=== PATIENT | female | born 1965 | race Caucasian/White ===

== ENCOUNTER → 2017-03-26 | Outpatient (CLI) | payer BC ==
--- NOTE | 2017-03-26 12:01 | FL ---
EXAMINATION TYPE: FL UGI w esophagus DATE OF EXAM: 03/26/2017 COMPARISON: NONE HISTORY: Intermittent globus sensation and dysphasia TECHNIQUE: A double contrast UGI study is performed. Fluoroscopy time of 1.8 minutes was utilized an d 97 images were saved. FINDINGS: Material Assembler image of the abdomen shows cholecystectomy clips within the right upper quadrant and no pneumoperitoneum. The esophagus shows normal motility and emptying into the stomach. No evidence of hiatal hernia or s tricture noted. Mild impression upon the posterior esophagus from anterior disc osteophyte is seen at C4-C5, C5-C6 and C6-C7. The stomach shows normal distensibility, peristalsis, and mucosal folds. No evidence of any mass or ulcer disease. No significant gastroesophageal reflux was seen during real time performance of this study. The duodenal bulb, sweep, and proximal small bowel loops are unremarkable. IMPRESSION: 1. Mild impression on the posterior esophagus at C4-C5, C5-C6, and C6-C7 from disc osteophyte complex es/anterior osteophytes. 2. No stricture, hiatal hernia, or evidence of focal ulceration.
== END ==
LOC: RADFLWHC 08:38
PROVIDERS: ATTEND Internal Medicine
DX: R13.10 Dysphagia, unspecified (principal)
CPT/HCPCS: 74240

== ENCOUNTER 2017-11-15 13:34 | Emergency (ER) | payer BC ==
[2017-11-15 13:44] VITALS: RESP 18; TEMP 98
[2017-11-15] MEDS ORDERED: MORPHINE SULFATE 2 MG/ML SYRINGE IV STA (14:49)
[2017-11-15] MEDS ORDERED: SODIUM CHLORIDE 0.9% 1,000 ML IV STA (14:49)
[2017-11-15 15:22] LABS: Basophils # (A) 0.1 k/uL (0-0.2); Basophils % (A) 0 %; Eosinophils # (A) 0.3 k/uL (0-0.7); Eosinophils % (A) 2 %; HCT 42.1 % (34.0-46.0); HGB 14.1 gm/dL (11.4-16.0); Lymphocytes # (A) 4.1 k/uL (1.0-4.8); Lymphocytes % (A) 36 %; MCH 30.2 pg (25.0-35.0); MCHC 33.6 g/dL (31.0-37.0); MCV 89.8 fL (80.0-100.0); Mean Platelet Volume 6.7; Monocytes # (A) 0.7 k/uL (0-1.0); Monocytes % (A) 6 %; Neutrophils # (A) 6.3 k/uL (1.3-7.7); Neutrophils % (A) 54 %; Platelet Count 307 k/uL (150-450); RBC 4.69 m/uL (3.80-5.40); RDW 12.5 % (11.5-15.5); WBC 11.6 k/uL (3.8-10.6)
[2017-11-15 15:23] LABS: Appearance,Urine Clear (Clear); Bacteria,Urine Rare /hpf; Bilirubin,Urine Negative (Negative); Blood,Urine Small (Negative); Color,Urine Light Yellow; Glucose,Urine (UA) Negative (Negative); Ketones,Urine Negative (Negative); Leukocyte Esterase,Urine Negative (Negative); Mucus,Urine Rare /hpf; Nitrite,Urine Negative (Negative); PH, Urine 5.5 (5.0-8.0); Protein,Urine Negative (Negative); RBC,Urine <1 /hpf (0-5); Specific Gravity,Urine 1.005 (1.001-1.035); Urobilinogen,Urine <2.0 mg/dL (<2.0); WBC,Urine 1 /hpf (0-5)
[2017-11-15 15:30] LABS: INR 0.9 (<1.2); Prothrombin Time 9.3 sec (9.0-12.0)
[2017-11-15 15:31] LABS: ALT 25 U/L (9-52); AST 19 U/L (14-36); Albumin 4.2 g/dL (3.5-5.0); Alkaline Phosphatase 80 U/L (38-126); Amylase 63 U/L (30-110); Anion Gap 10 mmol/L; Blood Urea Nitrogen 12 mg/dL (7-17); Calcium 9.1 mg/dL (8.4-10.2); Carbon Dioxide 25 mmol/L (22-30); Chloride 105 mmol/L (98-107); Glucose 89 mg/dL (74-99); Lipase 54 U/L (23-300); Potassium 5.1 mmol/L (3.5-5.1); Sodium 140 mmol/L (137-145); Total Bilirubin 0.5 mg/dL (0.2-1.3); Total Protein 6.6 g/dL (6.3-8.2)
--- NOTE | 2017-11-15 15:33 | ED ---
General Adult HPI - General Chief complaint: Abdominal Pain Stated complaint: pelvic pain Time Seen by Provider: 11/15/17 14:37 Source: patient, RN notes reviewed, old records reviewed Mode of arrival: ambulatory Limitations: no limitations - History of Present Illness Initial comments: 52-year-old female the ER for evaluation without pain. Patient has severe abdominal pain right lower quadrant abdominal pain. Mild nausea no vomiting or diarrhea. Patient has no recent medical history of similar complaints. Patient has had a gallbladder removed. Significant with no sick contacts no family members with similar complaints. He was seen by family doctor sent ER for evaluation today. No prior history of colonoscopy - Related Data Home Medications Medication Instructions Recorded Confirmed Levothyroxine Sodium [Synthroid] 125 mcg PO DAILY 11/15/17 11/15/17 Allergies Allergy/AdvReac Type Severity Reaction Status Date / Time bupropion [From Zyban] Allergy Rash/Hives Verified 11/15/17 14:51 Echinacea Allergy Rash/Hives Verified 11/15/17 14:51 Review of Systems ROS Statement: Those systems with pertinent positive or pertinent negative responses have been documented in the HPI. ROS Other: All systems not noted in ROS Statement are negative. Past Medical History Past Medical History: Thyroid Disorder History of Any Multi-Drug Resistant Organisms: None Reported Past Surgical History: Ablation, Bladder Surgery, Cholecystectomy, Tubal Ligation Additional Past Surgical History / Comment(s): Bladder Past Psychological History: No Psychological Hx Reported Smoking Status: Current every day smoker Past Alcohol Use History: None Reported Past Drug Use History: None Reported General Exam Limitations: no limitations General appearance: alert, in no apparent distress Head exam: Present: atraumatic, normocephalic, normal inspection Eye exam: Present: normal appearance, PERRL, EOMI. Absent: scleral icterus, conjunctival injection, periorbital swelling ENT exam: Present: normal exam, mucous membranes moist Neck exam: Present: normal inspection. Absent: tenderness, meningismus, lymphadenopathy Respiratory exam: Present: normal lung sounds bilaterally. Absent: respiratory distress, wheezes, rales, rhonchi, stridor Cardiovascular Exam: Present: regular rate, normal rhythm, normal heart sounds. Absent: systolic murmur, diastolic murmur, rubs, gallop, clicks GI/Abdominal exam: Present: soft, tenderness (Right lower quadrant), normal bowel sounds. Absent: distended, guarding, rebound, rigid Extremities exam: Present: normal inspection, full ROM, normal capillary refill. Absent: tenderness, pedal edema, joint swelling, calf tenderness Back exam: Present: normal inspection Neurological exam: Present: alert, oriented X3, CN II-XII intact Psychiatric exam: Present: normal affect, normal mood Skin exam: Present: warm, dry, intact, normal color. Absent: rash Course Vital Signs 11/15/17 11/15/17 13:41 17:23 Temperature 98 F Pulse Rate 78 63 Respiratory 18 18 Rate Blood Pressure 155/83 138/78 O2 Sat by Pulse 99 100 Oximetry - Reevaluation(s) Reevaluation #1: 11/15/17 17:47 Patient's pain is well-controlled Reevaluation #2: 11/15/17 17:48 Spoke with patient at length regarding symptoms. Result of test. Patient does not want stay in hospital at this time, she wants to find OB on her own Medical Decision Making - Medical Decision Making 52 female the ER with pelvic pain abdominal pain. Positive endometrial mass on ultrasound, mild free fluid, blood. Patient will be discharged home, patient will follow will be on an outpatient basis - Lab Data Result diagrams: 11/15/17 15:01 11/15/17 15:01 Lab Results 11/15/17 11/15/17 11/15/17 Range/Units 15:01 15:01 15:01 WBC 11.6 H (3.8-10.6) k/uL RBC 4.69 (3.80-5.40) m/uL Hgb 14.1 (11.4-16.0) gm/dL Hct 42.1 (34.0-46.0) % MCV 89.8 (80.0-100.0) fL MCH 30.2 (25.0-35.0) pg MCHC 33.6 (31.0-37.0) g/dL RDW 12.5 (11.5-15.5) % Plt Count 307 (150-450) k/uL Neutrophils % 54 % Lymphocytes % 36 % Monocytes % 6 % Eosinophils % 2 % Basophils % 0 % Neutrophils # 6.3 (1.3-7.7) k/uL Lymphocytes # 4.1 (1.0-4.8) k/uL Monocytes # 0.7 (0-1.0) k/uL Eosinophils # 0.3 (0-0.7) k/uL Basophils # 0.1 (0-0.2) k/uL PT 9.3 (9.0-12.0) sec INR 0.9 (<1.2) APTT 25.0 (22.0-30.0) sec Sodium 140 (137-145) mmol/L Potassium 5.1 (3.5-5.1) mmol/L Chloride 105 (98-107) mmol/L Carbon Dioxide 25 (22-30) mmol/L Anion Gap 10 mmol/L BUN 12 (7-17) mg/dL Creatinine 0.69 (0.52-1.04) mg/dL Est GFR (CKD-EPI)AfAm >90 (>60 ml/min/1.73 sqM) Est GFR (CKD-EPI)NonAf >90 (>60 ml/min/1.73 sqM) Glucose 89 (74-99) mg/dL Plasma Lactic Acid Kaiden (0.7-2.0) mmol/L Calcium 9.1 (8.4-10.2) mg/dL Total Bilirubin 0.5 (0.2-1.3) mg/dL AST 19 (14-36) U/L ALT 25 (9-52) U/L Alkaline Phosphatase 80 (38-126) U/L Total Protein 6.6 (6.3-8.2) g/dL Albumin 4.2 (3.5-5.0) g/dL Amylase 63 (30-110) U/L Lipase 54 (23-300) U/L Urine Color Urine Appearance (Clear) Urine pH (5.0-8.0) Ur Specific [place] (1.001-1.035) Urine Protein (Negative) Urine Glucose (UA) (Negative) Urine Ketones (Negative) Urine Blood (Negative) Urine Nitrite (Negative) Urine Bilirubin (Negative) Urine Urobilinogen (<2.0) mg/dL Ur Leukocyte Esterase (Negative) Urine RBC (0-5) /hpf Urine WBC (0-5) /hpf Urine Bacteria (None) /hpf Urine Mucus (None) /hpf 11/15/17 11/15/17 Range/Units 15:01 15:39 WBC (3.8-10.6) k/uL RBC (3.80-5.40) m/uL Hgb (11.4-16.0) gm/dL Hct (34.0-46.0) % MCV (80.0-100.0) fL MCH (25.0-35.0) pg MCHC (31.0-37.0) g/dL RDW (11.5-15.5) % Plt Count (150-450) k/uL Neutrophils % % Lymphocytes % % Monocytes % % Eosinophils % % Basophils % % Neutrophils # (1.3-7.7) k/uL Lymphocytes # (1.0-4.8) k/uL Monocytes # (0-1.0) k/uL Eosinophils # (0-0.7) k/uL Basophils # (0-0.2) k/uL PT (9.0-12.0) sec INR (<1.2) APTT (22.0-30.0) sec Sodium (137-145) mmol/L Potassium (3.5-5.1) mmol/L Chloride (98-107) mmol/L Carbon Dioxide (22-30) mmol/L Anion Gap mmol/L BUN (7-17) mg/dL Creatinine (0.52-1.04) mg/dL Est GFR (CKD-EPI)AfAm (>60 ml/min/1.73 sqM) Est GFR (CKD-EPI)NonAf (>60 ml/min/1.73 sqM) Glucose (74-99) mg/dL Plasma Lactic Acid [place] 0.6 L (0.7-2.0) mmol/L Calcium (8.4-10.2) mg/dL Total Bilirubin (0.2-1.3) mg/dL AST (14-36) U/L ALT (9-52) U/L Alkaline Phosphatase (38-126) U/L Total Protein (6.3-8.2) g/dL Albumin (3.5-5.0) g/dL Amylase (30-110) U/L Lipase (23-300) U/L Urine Color Light Yellow Urine Appearance Clear (Clear) Urine pH 5.5 (5.0-8.0) Ur Specific [place] 1.005 (1.001-1.035) Urine Protein Negative (Negative) Urine Glucose (UA) Negative (Negative) Urine Ketones Negative (Negative) Urine Blood Small H (Negative) Urine Nitrite Negative (Negative) Urine Bilirubin Negative (Negative) Urine Urobilinogen <2.0 (<2.0) mg/dL Ur Leukocyte Esterase Negative (Negative) Urine RBC <1 (0-5) /hpf Urine WBC 1 (0-5) /hpf Urine Bacteria Rare H (None) /hpf Urine Mucus Rare H (None) /hpf - Radiology Data Radiology results: report reviewed (CT abdomen and pelvis negative, ultrasound pelvis with positive free fluid, likely endometrial mass), image reviewed Disposition Clinical Impression: Pelvic mass, Endometrial mass Disposition: HOME SELF-CARE Condition: Good Instructions: Pelvic Pain in Women (ED) Is patient prescribed a controlled substance at d/c from ED?: No Referrals: Haris Gomez MD [Primary Care Provider] - 1-2 days Peggy Rg DO [Doctor of Osteopathic Medicine] - 1-2 days
--- NOTE | 2017-11-15 15:43 | CT ---
EXAMINATION TYPE: CT abdomen pelvis w con DATE OF EXAM: 11/15/2017 HISTORY: Right lower quadrant pain for past couple of days. CT DLP: 1588mGycm Automated Exposure Control for Dose Reduction was Utilized. CONTRAST: CT scan of the abdomen and pelvis is performed without oral but with IV Contrast, patient injected wi th 100 mL of Isovue 300. COMPARISON: CT abdomen pelvis December 29, 2009 FINDINGS: LUNG BASES: No significant abnormality is appreciated. LIVER/GB: Cholecystectomy clips are redemonstrated. PANCREAS: No significant abnormality is seen. SPLEEN: No significant abnormality is seen. ADRENALS: No significant abnormality is seen. KIDNEYS: No significant abnormality is seen. BOWEL: Appendix is felt within normal limits from base of cecum which is low lying in right pelvis se en best axial images 39 through 44. There is no suspicious small or large bowel dilatation. UTERUS/ADNEXA: Anteverted uterus is seen central hypodensity could reflect cystic change versus fluid trapped in endometrial canal in arcuate type configuration, this could be further investigated with pelvic ultrasound if desired. LYMPH NODES: No greater than 1cm abdominal or pelvic lymph nodes are appreciated. Slightly prominent but symmetric subcentimeter bilateral groin lymph nodes are incidentally noted. OSSEOUS STRUCTURES: There is transitional-type vertebra at lumbosacral junction is redemonstrated. OTHER: No significant additional abnormality is seen. IMPRESSION: No significant new or acute finding is seen to account for patient's clinical symptoms.
--- NOTE | 2017-11-15 17:25 | US ---
EXAMINATION TYPE: US transvaginal DATE OF EXAM: 11/15/2017 COMPARISON: NONE CLINICAL HISTORY: Pain, RLQ. TECHNIQUE: . Transabdominal sonographic images of the pelvis were acquired. Transvaginal sonographi c images were medically necessary to better assess the following anatomy: Date of LMP: 1 year prior EXAM MEASUREMENTS: Uterus: 8.5 x 4.7 x 5.8 cm Endometrial Stripe: 1.4 cm Right Ovary: Not visualized Left Ovary: Not visualized 1. Uterus: Anteverted 2. Endometrium: upper limits of normal in post menopausal patient, 2 cystic areas with internal debr is that appear to be within the endometrium largest measuring 1.4 x 0.7 x 1.2cm, second area measurin g 0.4 x 0.8 x 0.5cm 3. Right Ovary: not visualized 4. Left Ovary: not visualized 5. Bilateral Adnexa: wnl 6. Posterior cul-de-sac:wnl IMPRESSION: There is a complex fluid collection in the endometrial cavity. Endometrial tumor is possi ble in this postmenopausal patient. No adnexal mass.
[2017-11-15 17:27] VITALS: BP 138/78; PULSE 63
== END 2017-11-15 18:14 | disposition home or self-care (01) ==
LOC: EC 13:34
DX: N85.8 Other specified noninflammatory disorders of uterus (principal); R19.00 Intra-abdominal and pelvic swelling, mass and lump, unspecified site; R10.31 Right lower quadrant pain; R11.0 Nausea; E07.9 Disorder of thyroid, unspecified; F17.200 Nicotine dependence, unspecified, uncomplicated; Z79.899 Other long term (current) drug therapy; Z88.8 Allergy status to other drugs, medicaments and biological substances; Z90.49 Acquired absence of other specified parts of digestive tract; Z98.51 Tubal ligation status; Z53.20 Procedure and treatment not carried out because of patient's decision for unspecified reasons
CPT/HCPCS: 36415; 80053; 82150; 83605; 83690; 85025; 85610; 85730; 81001; 87086; 76830; 74177; 99284; 96360; 96361 ×2; Q9967

== ENCOUNTER → 2018-01-12 | Outpatient (CLI) | payer BC ==
[2018-01-12 11:38] LABS: Basophils # (A) 0.1 k/uL (0-0.2); Basophils % (A) 0 %; Eosinophils # (A) 0.3 k/uL (0-0.7); Eosinophils % (A) 3 %; HCT 44.2 % (34.0-46.0); HGB 14.5 gm/dL (11.4-16.0); Lymphocytes # (A) 3.8 k/uL (1.0-4.8); Lymphocytes % (A) 34 %; MCH 29.5 pg (25.0-35.0); MCHC 32.8 g/dL (31.0-37.0); MCV 89.8 fL (80.0-100.0); Mean Platelet Volume 6.8; Monocytes # (A) 0.8 k/uL (0-1.0); Monocytes % (A) 8 %; Neutrophils # (A) 5.9 k/uL (1.3-7.7); Neutrophils % (A) 54 %; Platelet Count 304 k/uL (150-450); RBC 4.92 m/uL (3.80-5.40); WBC 10.9 k/uL (3.8-10.6)
== END | disposition home or self-care (01) ==
LOC: LABPAT 11:14
PROVIDERS: ATTEND Obstetrics & Gynecology
DX: Z01.812 Encounter for preprocedural laboratory examination (principal); R10.2 Pelvic and perineal pain; N85.7 Hematometra
CPT/HCPCS: 36415; 85025

== ENCOUNTER 2018-01-21 07:08 | Day surgery (SDC) | payer BC ==
[2018-01-14 15:03] VITALS: BMI 35.2
[~2018-01-21 07:08] MED LIST: DEXAMETHASONE SOD PHOSPHATE 10 MG/ML 1 ML VIAL IV ONE; HYDROmorphone 0.5 MG/0.5 ML SYRINGE IVP PRN; LACTATED RINGERS 1,000 ML IV SCH; ONDANSETRON 4 MG/2 ML VIAL IVP ONE; Pre Op ABX Message 1 EACH MISC MISCELLANE ONE
[2018-01-21] MEDS ORDERED: LIDOCAINE 1% 20 ML VIAL (10MG/ML) FOR IV START INTRADERMA ONE (07:53)
[2018-01-21] MEDS ORDERED: fentaNYL (PF) 50 MCG/ML 2 ML AMP ONE (08:43)
[2018-01-21] MEDS ORDERED: LIDOCAINE 1% INJ 10MG/ML (20 ML MDV) ONE (08:43)
[2018-01-21] MEDS ORDERED: KETOROLAC 30 MG/ML 1 ML VIAL ONE (08:43)
[2018-01-21] MEDS ORDERED: MIDAZOLAM 2 MG/2 ML VIAL ONE (08:43)
[2018-01-21] MEDS ORDERED: PROPOFOL 10 MG/ML 20 ML VIAL IV ONE (08:43)
[2018-01-21] MEDS ORDERED: IBUPROFEN 600 MG TAB PO PRN (09:21)
[2018-01-21] MEDS ORDERED: METOCLOPRAMIDE 5 MG/ML 2 ML VIAL IVP PRN (09:21)
[2018-01-21] MEDS ORDERED: ONDANSETRON 4 MG/2 ML VIAL IVP PRN (09:21)
[2018-01-21] MEDS ORDERED: diphenhydrAMINE 50 MG/ML 1 ML VIAL IVP PRN (09:21)
[2018-01-21] MEDS ORDERED: SIMETHICONE 80 MG CHEWABLE PO PRN (09:21)
[2018-01-21] MEDS ORDERED: Acetaminophen-Codeine 300-30mg TAB PO PRN ×2 (09:21)
[2018-01-21] MEDS ORDERED: KETOROLAC 30 MG/ML 1 ML VIAL IVP PRN (09:21)
[2018-01-21 09:23] VITALS: TEMP 97
[2018-01-21] MEDS ORDERED: LACTATED RINGERS 1,000 ML IV SCH (09:30)
--- NOTE | 2018-01-21 09:32 | P.OP ---
Date of Procedure: 01/21/18 Preoperative Diagnosis: #1. Chronic pelvic pain #2. History of endometrial ablation #3. Probable hematometra Postoperative Diagnosis: Same Procedure(s) Performed: #1. Diagnostic hysteroscopy #2. Lysis of endometrial adhesions #3. Dilation and curettage Anesthesia: other (Gen. by face mask) Surgeon: Cj Nelson Estimated Blood Loss (ml): 5 IV fluids (ml): 300 Urine output (ml): 50 Pathology: other (Endometrial curettings) Condition: stable Disposition: PACU Operative Findings: Preoperative pelvic examination demonstrated a roughly 4-5 week anteverted mobile normal shaped uterus with normal adnexa bilaterally. Previous ultrasound had shown 2 small collections of fluid within the endometrial cavity or uterus which were thought to represent hematometra. Intraoperatively, there was initial penetration of adhesive disease at the level of the internal cervical os with the blunt probe leading to a uterine sound measurement of approximately 8-9 cm. With both the sound and subsequent dilation, darkish brown fluid was continue the sleeve released from the cervix. There were several other small "pops" during dilation likely representing breaking down of further endometrial adhesions. The dilators were utilized, once inserted into the endometrial cavity, to sweep back and forth in an attempt to break down any further adhesions. The hysteroscopic view of the endometrial cavity failed to demonstrate any obvious pathology and did not demonstrate any normal architecture. The patient is a poor candidate for a vaginal hysterectomy and would likely benefit from da Shawna approach should it become necessary. Description of Procedure: The patient was prepped and draped in usual fashion after general anesthesia was administered by the anesthesiologist. A weighted speculum was placed and the bladder drained of approximately 50 mL of clear umm urine. The anterior lip of the cervix was grasped with a single-tooth tenaculum and uterine sound utilized to probe the cervix. With some degree of pressure, I was able to pop through what appeared to be a dense adhesion which released some dark brown fluid around the sound. The uterine sound measurement then was recorded approximately 8-9 cm. Serial dilators were utilized to further enlarge the opening at the cervical os and, once to approximately 14-Upper Sor[place], were swept back and forth at the apex of the endometrial cavity to attempt to break down further adhesions. Several further "pops" were felt at which time further release of fluid was noted. Once adequate dilation had been carried out, the diagnostic hysteroscope was placed into the endometrial cavity and distended with fluid. There was no obvious normal architecture noted and there was a generally shaggy appearance to the endometrial cavity, particularly as it approached the most superior portions. Once hysteroscopy had been exhausted, it was set aside in favor of a small sharp curette which was introduced to the fundus of the cavity width thorough circumferential sharp curettage carried out onto a Telfa in the vagina. The typical gritty texture was encountered throughout the entire procedure and minimal tissue was returned. After several passes with the sharp curet, the specimen was passed for pathological diagnoses. All instrumentation was removed. There was a very small amount of ongoing bleeding, mostly darkish-appearing blood from the cervical os. There is no bleeding from the tenaculum site. All sponge, instrument, and needle counts were correct. There were no complications. Estimated blood loss for the case was 5 mL or less. The patient tolerated the procedure well and proceeded to the recovery room in stable condition.
[2018-01-21 09:46] VITALS: RESP 16
[2018-01-21 10:59] VITALS: BP 133/80; PULSE 68
== END 2018-01-21 11:10 | disposition home or self-care (01) ==
LOC: OR 07:08
PROVIDERS: ATTEND Obstetrics & Gynecology
DX: N99.4 Postprocedural pelvic peritoneal adhesions (principal); E03.9 Hypothyroidism, unspecified; Z79.890 Hormone replacement therapy; Z79.899 Other long term (current) drug therapy; Z88.8 Allergy status to other drugs, medicaments and biological substances; F17.210 Nicotine dependence, cigarettes, uncomplicated
CPT/HCPCS: 88305; 58558; J2250; J1100; J2405; J2001; J3010; J1885; J2704

== ENCOUNTER → 2018-10-18 | Outpatient (CLI) | payer BC ==
--- NOTE | 2018-10-22 13:50 | MM ---
Reason for exam: screening (asymptomatic). Last mammogram was performed 1 year and 10 months ago. History: Patient had first child at age 35. Family history of breast cancer in grandmother. Took hormonal contraceptives for 10 years. Physical Findings: A clinical breast exam by your physician is recommended on an annual basis and results should be correlated with mammographic findings. MG 3D Screening Mammo W/Cad Bilateral CC and MLO view(s) were taken. Prior study comparison: December 26, 2016, mammogram. October 21, 2015, mammogram. March 25, 2009, bilateral digital screening mammogram. November 25, 2007, bilateral digital screening mammogram. The breast tissue is heterogeneously dense. This may lower the sensitivity of mammography. No significant changes when compared with prior studies. ASSESSMENT: Benign, BI-RAD 2 RECOMMENDATION: Routine screening mammogram of both breasts in 1 year.
== END ==
LOC: RADMAMWWP 07:02
PROVIDERS: ATTEND Internal Medicine
DX: Z12.31 Encounter for screening mammogram for malignant neoplasm of breast (principal)
CPT/HCPCS: 77063; 77067

== ENCOUNTER → 2020-05-12 | Outpatient (CLI) | payer BC ==
--- NOTE | 2020-05-12 13:55 | BD ---
EXAMINATION TYPE: Axial Bone Density DATE OF EXAM: 05/12/2020 COMPARISON: 03.25.2009 CLINICAL HISTORY: 55 YR OLD FEMALE ICD-10 CODE: N95.1 POST MENOPAUSAL Height: 63.3 Weight: 215 FRAX RISK QUESTIONS: Current Tobacco Use: YES RISK FACTORS HISTORY OF: Family History of Osteoporosis: YES, GRANDMOTHER Postmenopausal woman: LMP 2 YRS AGO....AT 53 YRS OLD Hyperparathyroidism: NO Adrenal Insufficiency: NO MEDICATIONS: Thyroid Medications: YES, SYNTHROID FOR ABOUT 25 YRS Additional Medications: VIT D, AND CENTRUM SILVER Additional History: NOTHING ADDITIONAL TO NOTE EXAM MEASUREMENTS: Bone mineral densitometry was performed using the [email or web address] System. Bone mineral density as measured about the Lumbar spine is: ----- L1-L4(G/cm2): 1.262 T Score Values are as follows: ----- L1: 0.0 ----- L2: 0.8 ----- L3: 0.9 ----- L4: 0.8 ----- L1-L4: 0.7 Bone mineral density has: Increased 1.5% since study of: 03.25.2009 Bone mineral density about the R hip (g/cm2): 1.194 Bone mineral density about the L hip (g/cm2): 1.254 T Score values are as follows: -----R Neck: 1.0 -----L Neck: 1.3 -----R Total: 1.5 -----L Total: 2.0 Bone mineral density has: Increased 2.3% since study of: 03.25.2009 FRAX%s: THERE IS A 3.8% CHANCE FOR A MAJOR OSTEOPOROTIC FX AND A 0.0% FOR HIP.....PROBABILITY FOR FX IN 10 YRS TIME IMPRESSION: Normal (Values between +1 and -1 indicate normal bone mass). Consider repeating this study in 5 year s or sooner if there is some new clinical indication. NOTE: T-SCORE=SD OF THE YOUNG ADULT MEAN.
--- NOTE | 2020-05-13 11:16 | MM ---
Reason for exam: screening (asymptomatic). Last mammogram was performed 1 year and 7 months ago. History: Patient had first child at age 35. Family history of breast cancer in grandmother. Took hormonal contraceptives for 10 years. Physical Findings: A clinical breast exam by your physician is recommended on an annual basis and results should be correlated with mammographic findings. MG 3D Screening Mammo W/Cad Bilateral CC and MLO view(s) were taken. Prior study comparison: October 18, 2018, bilateral MG 3d screening mammo w/cad. December 26, 2016, mammogram. The breast tissue is heterogeneously dense. This may lower the sensitivity of mammography. Asymmetric breast tissue right breast, stable. There is no discrete abnormality. Benign bilateral axillary lymph nodes redemonstrated. ASSESSMENT: Benign, BI-RAD 2 RECOMMENDATION: Routine screening mammogram of both breasts in 1 year.
== END | disposition home or self-care (01) ==
LOC: RADMAMWWP 07:43
PROVIDERS: ATTEND Family Medicine
DX: Z12.31 Encounter for screening mammogram for malignant neoplasm of breast (principal); N95.1 Menopausal and female climacteric states
CPT/HCPCS: 77063; 77067; 77080

== ENCOUNTER → 2021-05-06 | Outpatient (CLI) | payer BC ==
--- NOTE | 2021-05-06 09:41 | CTL ---
EXAMINATION TYPE: CT Low Dose Lung DATE OF EXAM ORDERED: 05/06/2021 HISTORY: Personal tobacco use. Lung cancer screening CT DLP: 110.[address] CTDI: 3.70 mGy Automated exposure control for dose reduction was used. SCREENING VISIT: Initial COMPARISON: None TECHNIQUE: Low dose computed tomography scan was performed through the chest at 1 mm thick sections a nd reconstructed images in the coronal plane at [address] DIAGNOSTIC QUALITY: Satisfactory FINDINGS: LUNG NODULES: None. Couple of very subtle areas of pneumonitis may be present. LUNGS: COPD: Severity: None Fibrosis: Severity: None Lymph nodes: None Other findings: None RIGHT PLEURAL SPACE: Effusion: None Calcification: None Thickening: None Pneumothorax: None LEFT PLEURAL SPACE: Effusion: None Calcification: None Thickening: None Pneumothorax: None HEART: Heart Size: Normal Coronary calcification: None Pericardial effusion: None OTHER FINDINGS: Upper abdomen: Normal Bony thorax: Normal Supraclavicular region: Normal Other: Ascending thoracic aorta at the level the main pulmonary artery measures 3.4 cm. The main pul monary artery at the bifurcation measures 2.3 cm. IMPRESSION: 1. No suspicious changes on low dose CT screening chest FOLLOW UP CT CHEST RECOMMENDATION: Follow-up low dose screening chest CT [address] LUNG RAD: 1
== END | disposition home or self-care (01) ==
LOC: RADCTMAIN 06:52
PROVIDERS: ATTEND Internal Medicine
DX: Z12.2 Encounter for screening for malignant neoplasm of respiratory organs (principal); F17.200 Nicotine dependence, unspecified, uncomplicated
CPT/HCPCS: 71271

== ENCOUNTER → 2021-11-22 | Outpatient (CLI) | payer BC ==
[2021-11-22 10:48] LABS: Basophils # (A) 0.04 X 10*3/uL (0.00-0.10); Basophils % (A) 0.4 %; Eosinophils # (A) 0.29 X 10*3/uL (0.04-0.35); Eosinophils % (A) 2.7 %; HCT 41.1 % (37.2-46.3); HGB 12.8 g/dL (12.0-15.0); Immature Grans, Automated 0.5 %; Lymphocytes # (A) 3.25 X 10*3/uL (0.90-5.00); Lymphocytes % (A) 30.4 %; MCH 29.1 pg (27.0-32.0); MCHC 31.1 g/dL (32.0-37.0); MCV 93.4 fL (80.0-97.0); Mean Platelet Volume 9.8 fL (9.5-12.2); Monocytes % (A) 10.3 %; NRBC Per 100 WBC 0 /100 WBCS (0.0-0.0); Neutrophils # (A) 5.96 X 10*3/uL (1.80-7.70); Neutrophils % (A) 55.7 %; Platelet Count 332 X 10*3/uL (140-440); RDW 12.8 % (11.5-14.5); WBC 10.69 X 10*3/uL (4.50-10.00)
[2021-11-22 11:17] LABS: African American GFR (CKD) 96.2 (60.0-200.0); Albumin 4.2 g/dL (3.8-4.9); Albumin/Globulin Ratio 1.56 (1.60-3.17); Anion Gap 11.3 mmol/L (10.00-18.00); BUN/Creat Ratio 19.63 Ratio (12.00-20.00); Blood Urea Nitrogen 15.7 mg/dL (9.0-27.0); Calcium 9.1 mg/dL (8.7-10.3); Carbon Dioxide 24.7 mmol/L (20.0-27.5); Globulin 2.7 g/dL (1.6-3.3); HDL Cholesterol 38.6 mg/dL (40.00-60.00); Potassium 4.4 mmol/L (3.5-5.5); T4, Free (Free Thyroxine) 1.04 ng/dL (0.800-1.800); Total Bilirubin 0.2 mg/dL (0.30-1.20); Total Protein 6.9 g/dL (6.2-8.2)
[2021-11-22 11:28] LABS: Chol/HDL Ratio 6.04 Ratio
--- NOTE | 2021-11-23 07:42 | MM ---
Reason for Exam: Screening (asymptomatic). Last mammogram was performed 1 year(s) and 6 month(s) ago. Patient History: Menarche at age 14. First Full-Term at age 35. Late child-bearing (after 30). Patient used Hormonal Contraceptives for 10 years. Maternal grandmother had breast cancer. Risk Values: Sonal 5 year model risk: 1.6%. NCI Lifetime model risk: 11.2%. Prior Study Comparison: 12/26/2016 Screening Mammogram, Unknown. 10/18/2018 Bilateral Screening Mammogram, [facility]. 05/12/2020 Bilateral Screening Mammogram, [facility]. Tissue Density: The breast tissue is heterogeneously dense. This may lower the sensitivity of mammography. Findings: Analyzed By CAD. There is no suspicious group of microcalcifications or new suspicious mass in either breast. Overall Assessment: Benign, BI-RAD 2 Management: Screening Mammogram of both breasts in 1 year. A clinical breast exam by your physician is recommended on an annual basis and results should be correlated with mammographic findings. Electronically signed and approved by: Jerson Prajapati M.D. Radiologis
== END | disposition home or self-care (01) ==
LOC: RADMAMWWP 07:22
PROVIDERS: ATTEND Internal Medicine
DX: Z12.31 Encounter for screening mammogram for malignant neoplasm of breast (principal); E03.9 Hypothyroidism, unspecified; E55.9 Vitamin D deficiency, unspecified
CPT/HCPCS: 77063; 77067; 80053; 80061; 82306; 83721; 84439; 84443; 85025

== ENCOUNTER → 2022-06-19 | Outpatient (CLI) | payer BC ==
--- NOTE | 2022-06-19 07:33 | US ---
EXAMINATION TYPE: US thyroid st tissue head/neck DATE OF EXAM: 06/19/2022 COMPARISON: NONE CLINICAL HISTORY: E039 HYPOTHYROIDISM. Hypothyroidism. Patient on thyroid medication GLAND SIZE: Right Lobe: 4.8 x 2.9 x 2.3 cm Overall Parenchyma: heterogenous Left Lobe: 4.6 x 1.9 x 2.3 cm Overall Parenchyma: heterogeneous Isthmus Thickness: 0.7 cm NODULES RIGHT: # of nodules measured on right: 0 LEFT: # of nodules measured on left: 0 ISTHMUS: # of nodules measured in the isthmus: 0 Bilateral neck scanned, no evidence of lymphadenopathy. IMPRESSION: Diffusely heterogenous thyroid gland without discrete nodules identified.
[2022-06-19 11:31] LABS: Basophils # (A) 0.05 X 10*3/uL (0.00-0.10); Basophils % (A) 0.5 %; Eosinophils # (A) 0.24 X 10*3/uL (0.04-0.35); Eosinophils % (A) 2.3 %; HCT 42.1 % (37.2-46.3); HGB 13.6 g/dL (12.0-15.0); Immature Grans, Automated 0.3 %; Lymphocytes # (A) 3.39 X 10*3/uL (0.90-5.00); Lymphocytes % (A) 32.9 %; MCH 30.4 pg (27.0-32.0); MCHC 32.3 g/dL (32.0-37.0); MCV 94.2 fL (80.0-97.0); Mean Platelet Volume 9.8 fL (9.5-12.2); Monocytes # (A) 1.17 X 10*3/uL (0.20-1.00); Monocytes % (A) 11.4 %; NRBC Per 100 WBC 0 /100 WBCS (0.0-0.0); Neutrophils # (A) 5.42 X 10*3/uL (1.80-7.70); Neutrophils % (A) 52.6 %; Platelet Count 300 X 10*3/uL (140-440); RBC 4.47 X 10*6/uL (4.10-5.20); RDW 12.6 % (11.5-14.5)
--- NOTE | 2022-06-19 11:43 | CTL ---
EXAMINATION TYPE: CT Low Dose Lung DATE OF EXAM ORDERED: 06/19/2022 HISTORY: . Lung cancer screening CT DLP: 138.[address] CTDI: 4.0 mGy Automated exposure control for dose reduction was used. SCREENING VISIT: Subsequent follow-up COMPARISON: 05/06/2021 TECHNIQUE: Low dose computed tomography scan was performed through the chest at 1 mm thick sections a nd reconstructed images in the coronal plane at [address] DIAGNOSTIC QUALITY: Satisfactory FINDINGS: LUNG NODULES: None. Minimal pneumonitis changes may be present. No significant interval change. LUNGS: COPD: Severity: None Fibrosis: Severity: None Lymph nodes: None Other findings: None RIGHT PLEURAL SPACE: Effusion: None Calcification: None Thickening: None Pneumothorax: None LEFT PLEURAL SPACE: Effusion: None Calcification: None Thickening: None Pneumothorax: None HEART: Heart Size: Normal Coronary calcification: None Pericardial effusion: None OTHER FINDINGS: Upper abdomen: Normal Bony thorax: Normal Supraclavicular region: Normal Other: Ascending thoracic aorta at the level the main pulmonary artery measures 3.6 cm. The main pul monary artery at the bifurcation measures 2.3 cm. IMPRESSION: 1. No suspicious changes to suggest primary or metastatic neoplasm FOLLOW UP CT CHEST RECOMMENDATION: Follow-up low-dose CT chest [address] LUNG RAD: Lung-Rad 1 Negative
[2022-06-19 12:14] LABS: ALT 26 U/L (8-44); AST 17 U/L (13-35); African American GFR (CKD) 95.5 (60.0-200.0); Albumin 4.3 g/dL (3.8-4.9); Albumin/Globulin Ratio 1.95 (1.60-3.17); Alkaline Phosphatase 101 U/L (41-126); BUN/Creat Ratio 21.13 Ratio (12.00-20.00); Blood Urea Nitrogen 16.9 mg/dL (9.0-27.0); Calcium 9.4 mg/dL (8.7-10.3); Carbon Dioxide 25.9 mmol/L (20.0-27.5); Chloride 105 mmol/L (96-109); Chol/HDL Ratio 4.62 Ratio; Globulin 2.2 g/dL (1.6-3.3); Glucose 108 mg/dL (70-110); LDL Cholesterol,Calculated 142.2 mg/dL (0.0-131.0); Non-African American GFR(CKD) 82.4 (60.0-200.0); Potassium 4.5 mmol/L (3.5-5.5); Sodium 143 mmol/L (135-145); Total Protein 6.5 g/dL (6.2-8.2)
== END | disposition home or self-care (01) ==
LOC: RADUSWWP 06:56
PROVIDERS: ATTEND Internal Medicine
DX: Z12.2 Encounter for screening for malignant neoplasm of respiratory organs (principal); E03.9 Hypothyroidism, unspecified; F17.210 Nicotine dependence, cigarettes, uncomplicated
CPT/HCPCS: 71271; 76536; 80053; 80061; 82306; 84439; 84443; 85025

== ENCOUNTER → 2022-12-11 | Outpatient (CLI) | payer BC ==
--- NOTE | 2022-12-12 19:55 | MM ---
Reason for Exam: Screening (asymptomatic). Last mammogram was performed 1 year(s) and 1 month(s) ago. Patient History: Menarche at age 14. First Full-Term at age 35. Late child-bearing (after 30). Patient has history of breast feeding. Patient used Hormonal Contraceptives for 10 years. Maternal grandmother had breast cancer. Risk Values: Sonal 5 year model risk: 1.7%. NCI Lifetime model risk: 10.9%. Prior Study Comparison: 10/18/2018 Bilateral Screening Mammogram, [facility]. 05/12/2020 Bilateral Screening Mammogram, [facility]. 11/22/2021 Bilateral MG 3D screening mammo w/cad, [facility]. Tissue Density: There are scattered fibroglandular densities. Findings: Analyzed By CAD. Unchanged subareolar asymmetric density right cc view. There is no suspicious group of microcalcifications or new suspicious mass in either breast. Overall Assessment: Benign, BI-RAD 2 Management: Screening Mammogram of both breasts in 1 year. . Patient should continue monthly self-breast exams. A clinical breast exam by your physician is recommended on an annual basis. This exam should not preclude additional follow-up of suspicious palpable abnormalities. Note on Sonal scores and lifetime risk: 1. A Sonal score greater than 3% is considered moderate risk. If this is the case, consider specialist referral to assess eligibility for a risk reducing agent. 2. If overall lifetime risk for the development of breast cancer is 20% or higher, the patient may qualify for future screening with alternating mammogram and breast MRI. Electronically signed and approved by: Melissa Norman M.D. Radiologist
== END | disposition home or self-care (01) ==
LOC: RADMAMWWP 16:00
PROVIDERS: ATTEND Internal Medicine
DX: Z12.31 Encounter for screening mammogram for malignant neoplasm of breast (principal); Z80.3 Family history of malignant neoplasm of breast
CPT/HCPCS: 77063; 77067

== ENCOUNTER → 2023-05-12 | Outpatient (CLI) | payer BC ==
[2023-05-12 22:47] LABS: Basophils # (A) 0.06 X 10*3/uL (0.00-0.10); Basophils % (A) 0.5 %; Eosinophils # (A) 0.31 X 10*3/uL (0.04-0.35); Eosinophils % (A) 2.8 %; HCT 39.2 % (37.2-46.3); HGB 12.3 g/dL (12.0-15.0); Lymphocytes # (A) 3.48 X 10*3/uL (0.90-5.00); Lymphocytes % (A) 31.2 %; MCH 29.4 pg (27.0-32.0); MCHC 31.4 g/dL (32.0-37.0); MCV 93.8 FL (80.0-97.0); Mean Platelet Volume 9.5 FL (9.5-12.2); Monocytes # (A) 1.25 X 10*3/uL (0.20-1.00); Monocytes % (A) 11.2 %; NRBC Per 100 WBC 0 X 10*3/uL (0.00-0.01); Neutrophils # (A) 5.97 X 10*3/uL (1.80-7.70); Neutrophils % (A) 53.7 %; Platelet Count 348 X 10*3/uL (140-440); RBC 4.18 X 10*6/uL (4.10-5.20); RDW 12.5 % (11.5-14.5); WBC 11.14 X 10*3/uL (4.50-10.00)
[2023-05-12 23:12] LABS: ALT 39 U/L (8-44); AST 22 U/L (13-35); Albumin/Globulin Ratio 1.67 Ratio (1.60-3.17); Alkaline Phosphatase 116 U/L (41-126); BUN/Creat Ratio 20.29 Ratio (12.00-20.00); Blood Urea Nitrogen 14.2 mg/dL (9.0-27.0); Calcium 9.6 mg/dL (8.7-10.3); Chloride 103 mmol/L (96-109); Chol/HDL Ratio 4.05 Ratio; Globulin 2.4 g/dL (1.6-3.3); Glucose 100 mg/dL (70-110); Magnesium 2.1 mg/dL (1.5-2.4); Potassium 4.6 mmol/L (3.5-5.5); Sodium 140 mmol/L (135-145); T4, Free (Free Thyroxine) 1.22 ng/dL (0.80-1.80); Total Bilirubin 0.5 mg/dL (0.3-1.2); Total Protein 6.4 g/dL (6.2-8.2); VLDL Calculation 19.92 mg/dL (5.00-40.00)
== END | disposition home or self-care (01) ==
LOC: LABWHC1 09:26
PROVIDERS: ATTEND Internal Medicine
DX: I10 Essential (primary) hypertension (principal); E03.9 Hypothyroidism, unspecified; E55.9 Vitamin D deficiency, unspecified; R00.2 Palpitations
CPT/HCPCS: 36415; 80053; 80061; 82306; 83735; 84439; 84443; 85025; 93005

== ENCOUNTER → 2023-05-29 | Outpatient (CLI) | payer BC ==
--- NOTE | 2023-05-30 08:11 | CA ---
Transthoracic Echo Report Name: Kaylee Alvarez Age: 58 Gender: F : 1965 Exam Date: 05/29/2023 12:57 Exam Location: [facility] Ht (in): 65 Wt (lb): 240 Ordering Physician: Carlito Li MD Attending/Referring Phys: Carlito Li MD [employer] Julia Ortega BK Procedure CPT: Indications: 24 HR HOLTER R00.2 PALPITATIONS Cardiac Hx: Technical Quality: Contrast 1: Total Dose (mL): Contrast 2: Total Dose (mL): MEASUREMENTS (Male / Female) Normal Values 2D ECHO LV Diastolic Diameter PLAX 4.3 cm 4.2 - 5.9 / 3.9 - 5.3 cm LV Systolic Diameter PLAX 3.2 cm IVS Diastolic Thickness 1.2 cm 0.6 - 1.0 / 0.6 - 0.9 cm LVPW Diastolic Thickness 1.2 cm 0.6 - 1.0 / 0.6 - 0.9 cm LV Relative Wall Thickness 0.6 RV Internal Dim ED PLAX 3.6 cm LA Systolic Diameter LX 3.5 cm 3.0 - 4.0 / 2.7 - 3.8 cm LV Diastolic Volume MOD BP 55.3 cm??? 67 - 155 / 56 - 104 cm??? LV Systolic Volume MOD BP 26.0 cm??? 22 - 58 / 19 - 49 cm??? LV Ejection Fraction MOD BP 53.0 % >= 55 % LV Diastolic Volume MOD 4C 60.2 cm??? LV Systolic Volume MOD 4C 26.3 cm??? LV Ejection Fraction MOD 4C 56.4 % LV Diastolic Length 4C 7.6 cm LV Systolic Length 4C 6.3 cm LV Diastolic Volume MOD 2C 49.2 cm??? LV Systolic Volume MOD 2C 26.9 cm??? LV Ejection Fraction MOD 2C 45.3 % LV Diastolic Length 2C 7.1 cm LV Systolic Length 2C 6.3 cm LA Volume 66.2 cm??? 18 - 58 / 22 - 52 cm??? LA Volume Index 28.9 cm???/m??? 16 - 28 cm???/m??? M-MODE IVS Diastolic Thickness MM 3.0 cm 0.6 - 1.0 / 0.6 - 0.9 cm Aortic Root Diameter MM 3.1 cm MV E Point Septal Separation 0.3 cm AV Cusp Separation MM 2.1 cm DOPPLER AV Peak Velocity 183.6 cm/s AV Peak Gradient 13.5 mmHg MV Area PHT 3.3 cm??? Mitral E Point Velocity 126.2 cm/s Mitral A Point Velocity 107.6 cm/s Mitral E to A Ratio 1.2 MV Deceleration Time 233.2 ms MV E' Velocity 9.9 cm/s Mitral E to MV E' Ratio 12.8 TR Peak Velocity 268.0 cm/s TR Peak Gradient 28.7 mmHg Right Atrial Pressure 15.0 mmHg Pulmonary Artery Systolic Pressu 43.7 mmHg Right Ventricular Systolic Press 42.0 mmHg FINDINGS Left Ventricle Left ventricular ejection fraction is estimated at 55-60 %. Mildly increased septal wall thickness. Mildly increased posterior wall thickness. Left ventricular cavity size normal. Right Ventricle Mild right ventricular dilatation. Mild pulmonary hypertension. Right Atrium Normal right atrial size. Left Atrium Moderately increased left atrial volume. Mildly increased left atrial area. Mitral Valve Structurally normal mitral valve. Trace mitral regurgitation. Aortic Valve Trileaflet aortic valve. No aortic valve stenosis or regurgitation. Tricuspid Valve Structurally normal tricuspid valve. Trace to mild tricuspid regurgitation. Pulmonic Valve Structurally normal pulmonic valve. No pulmonic regurgitation. Pericardium Aorta Normal size aortic root and proximal ascending aorta. CONCLUSIONS Left ventricular ejection fraction 55-60% Mildly increased left ventricular wall thickness RVSP 42 Mildly dilated left atrium Trace to mild tricuspid regurgitation Previewed by: Dr. Meir Adkins DO (Electronically Signed) Final Date: 30 May 2023 08:10
== END | disposition home or self-care (01) ==
LOC: RADECHMAIN 12:55
PROVIDERS: ATTEND Internal Medicine
DX: I36.1 Nonrheumatic tricuspid (valve) insufficiency (principal); R00.2 Palpitations
CPT/HCPCS: 93306

== ENCOUNTER → 2023-06-11 | Outpatient (CLI) | payer BC ==
--- NOTE | 2023-06-15 12:29 | HM ---
HOLTER MONITOR REPORT This is a 24-hour Holter. INDICATIONS: Palpitations. FINDINGS: Underlying rhythm is sinus with an average heart rate of 71 beats per minute, heart rate varied from 56 beats per minute to 118 beats per minute. Rare PVCs and occasional PACs are noted. CONCLUSIONS: As above. MMODL / IJN: [id number] /
== END | disposition home or self-care (01) ==
LOC: RADECHMAIN 07:24
PROVIDERS: ATTEND Internal Medicine
DX: I49.3 Ventricular premature depolarization (principal); I49.1 Atrial premature depolarization; R00.2 Palpitations
CPT/HCPCS: 93225; 93226

== ENCOUNTER → 2023-07-24 | Outpatient (CLI) | payer BC ==
--- NOTE | 2023-07-27 08:47 | CTL ---
EXAMINATION TYPE: CT Low Dose Lung DATE OF EXAM: 07/24/2023 3:44 PM CLINICAL INDICATION:Female, 58 years old with history of Z12.2 LUNG CA SCREEN F17.210 NICOTINE DEPEND ENCE; personal tobacco use , history of tobacco use. COMPARISON: CT low dose lung 06/19/2022 and 05/06/2021 TECHNIQUE: CT scan of the chest obtained without contrast from approximately the lung apices through the upper abdomen. Axial, coronal and sagittal reformatted images were obtained. Low dose technique w as utilized for nodule screening purposes. CT DLP: 81 mGycm, Automated exposure control for dose reduction was used. CT Contrast: IV contrast used: None. Oral contrast used: None. FINDINGS: Lack of intravenous contrast and low dose technique limits the evaluation of the vascular and soft ti ssue structures. LUNGS: No evidence of pulmonary fibrosis. No evidence of focal consolidation or infiltrate. No signif icant emphysematous changes. Minimal scarring or subsegmental atelectasis in the RML and lingula. NODULES: No clinically significant nodules demonstrated. PLEURA: No sizeable pleural effusion or pneumothorax. AIRWAY: Central airways are patent. LOWER NECK: No significant findings. MEDIASTINUM: No evidence of enlarged mediastinal or hilar nodes, in the limits of noncontrast exam.. HEART: Normal heart size. No significant coronary arterial calcification seen.. No appreciable perica rdial effusion. VASCULATURE: Mild atherosclerotic calcifications of the aorta and branches. Ascending aorta is 2.8 C M, descending is 2.3 CM. Aorta is considered normal in size. Pulmonary trunk measures 2.6 CM, normal in size. Vessels otherwise not further assessed without contrast. SOFT TISSUES/LYMPH NODES: No enlarged axillary nodes. Partially seen heterogeneously dense breast tis sues. UPPER ABDOMEN: No significant findings. Cholecystectomy clips. Possible element of hepatic steatosis. MUSCULOSKELETAL: Mild to moderate disc degeneration changes are present throughout the thoracolumbar spine. No acute findings. IMPRESSION: 1. No clinically significant pulmonary nodules. CT LUNG-RADS AND FOLLOWUP RECOMMENDATION: Lung-RADS Category 1, Negative: Continue annual screening with LDCT in 12 months. C Modifier (Personal history of lung cancer?): No. S Modifier (Other clinically significant or potentially significant findings?): No. Other significant or potentially significant abnormalities: None. Recommend smoking cessation (if current smoker), or continuation of smoking cessation (if prior smoke r). Annual screening for lung cancer with low-dose computed tomography is recommended in adults ages 55 to 77 years who have a 30 pack-year smoking history and currently smoke or have quit within the pa st 15 years. Screening should be discontinued once a person has not smoked for 15 years or develops a health problem that substantially limits life expectancy or the ability or willingness to have curat viktoria lung surgery. Lung-RADS v.2021 Link Here [email or web address]
== END | disposition home or self-care (01) ==
LOC: RADCTMAIN 15:25
PROVIDERS: ATTEND Internal Medicine
DX: Z12.2 Encounter for screening for malignant neoplasm of respiratory organs (principal); F17.210 Nicotine dependence, cigarettes, uncomplicated
CPT/HCPCS: 71271

== ENCOUNTER → 2024-02-12 | Outpatient (CLI) | payer BC ==
[2024-02-12 10:13] LABS: Basophils # (A) 0.05 X 10*3/uL (0.00-0.10); Basophils % (A) 0.5 %; Eosinophils # (A) 0.22 X 10*3/uL (0.04-0.35); Eosinophils % (A) 2.4 %; HCT 37.3 % (37.2-46.3); HGB 12.3 g/dL (12.0-15.0); Lymphocytes # (A) 3.04 X 10*3/uL (0.90-5.00); Lymphocytes % (A) 33.3 %; MCH 29.8 pg (27.0-32.0); MCV 90.3 FL (80.0-97.0); Mean Platelet Volume 9.7 FL (9.5-12.2); Monocytes # (A) 0.88 X 10*3/uL (0.20-1.00); Monocytes % (A) 9.6 %; NRBC Per 100 WBC 0 X 10*3/uL (0.00-0.01); Neutrophils # (A) 4.91 X 10*3/uL (1.80-7.70); Neutrophils % (A) 53.8 %; Platelet Count 243 X 10*3/uL (140-440); RBC 4.13 X 10*6/uL (4.10-5.20); RDW 12.6 % (11.5-14.5); WBC 9.14 X 10*3/uL (4.50-10.00)
[2024-02-12 16:03] LABS: Magnesium 2.1 mg/dL (1.5-2.4); T4, Free (Free Thyroxine) 0.98 ng/dL (0.80-1.80)
[2024-02-12 16:06] LABS: ALT 60 U/L (8-44); AST 35 U/L (13-35); Albumin 4.2 g/dL (3.8-4.9); Albumin/Globulin Ratio 1.83 Ratio (1.60-3.17); Alkaline Phosphatase 104 U/L (41-126); Calcium 9.3 mg/dL (8.7-10.3); Carbon Dioxide 25.3 mmol/L (21.6-31.8); Chloride 103 mmol/L (96-109); Chol/HDL Ratio 4.88 Ratio; Globulin 2.3 g/dL (1.6-3.3); Glucose 124 mg/dL (70-110); LDL Cholesterol,Calculated 125.7 mg/dL (0.0-131.0); Potassium 4.4 mmol/L (3.5-5.5); Sodium 142 mmol/L (135-145); Total Bilirubin 0.4 mg/dL (0.3-1.2); Total Protein 6.5 g/dL (6.2-8.2)
== END | disposition home or self-care (01) ==
LOC: LABWHC1 07:10
PROVIDERS: ATTEND Internal Medicine
DX: Z00.00 Encounter for general adult medical examination without abnormal findings (principal); I10 Essential (primary) hypertension; E03.9 Hypothyroidism, unspecified; E55.9 Vitamin D deficiency, unspecified
CPT/HCPCS: 36415; 80053; 80061; 82306; 83735; 84439; 84443; 85025

== ENCOUNTER → 2024-05-08 | Day surgery (SDC) | payer BC ==
[2024-04-30 14:44] VITALS: BMI 41.5
[~2024-05-08] MED LIST changes: -DEXAMETHASONE SOD PHOSPHATE 10 MG/ML 1 ML VIAL IV ONE; -HYDROmorphone 0.5 MG/0.5 ML SYRINGE IVP PRN; -LACTATED RINGERS 1,000 ML IV SCH; -ONDANSETRON 4 MG/2 ML VIAL IVP ONE; +PROPOFOL 10 MG/ML 20 ML VIAL IV ONE; -Pre Op ABX Message 1 EACH MISC MISCELLANE ONE
[2024-05-08 12:34] VITALS: RESP 18; TEMP 97.6
[2024-05-08] MEDS: IV FLUID CONTINUATION 1,000 ML IV ONE ×2 (12:42→13:04)
[2024-05-08] MEDS: LACTATED RINGERS 1,000 ML IV SCH (12:42)
--- NOTE | 2024-05-08 13:49 | P.PCN ---
Date of Procedure: 05/08/24 Preoperative Diagnosis: GERD Screening history of colon polyps Postoperative Diagnosis: Gastritis Transverse colon polyp x 2 Descending colon polyp x 2 Procedure(s) Performed: EGD with biopsy Colonoscopy with forcep and hot snare polypectomy Anesthesia: MAC Surgeon: Tyrese Bobby Pathology: other (Biopsies of duodenum, antrum, GE junction, transverse colon polyp x 2, descending colon polyp x 2) Condition: stable Disposition: same day Indications for Procedure: 59-year-old female presents today for upper and lower endoscopy. She has history of GERD with some heartburn symptoms and plan is for upper endoscopy for further evaluation. She also has a personal history of colon polyps and is due for screening colonoscopy for surveillance. Risks, benefits and alternatives were provided. All questions answered prior to attending the endoscopy suite. Operative Findings: Mild gastritis Transverse colon polyp x 2 Descending colon polyp x 2. Description of Procedure: The patient was brought into the endoscopy suite and placed in left lateral de cubitus position. Adequate sedation was achieved using conscious sedation. A bite-block was placed and an endoscope was placed in the oropharynx and advanced under endoscopic visualization. The endoscope was advanced through the esophagus into the stomach, through the gastric antrum and in through the pylorus. The third portion of duodenum was visualized. The endoscope was then slowly withdrawn. The first portion of duodenum was noted to have mild inflammatory changes. Biopsies were taken. The antrum was noted to have mild inflammatory changes. Biopsies were taken. The gastric body distended normally and the gastric folds appeared normal and flattened with insufflation. A retroflexed view of the fundus and GE junction revealed no significant hiatal hernia. GE junction appeared without any inflammatory changes and biopsies were taken. The esophagus appeared endoscopically normal. Excess air was removed and the scope was withdrawn. Digital rectal exam was performed and mild internal hemorrhoids were palpated. An endoscope was then placed in the rectum and advanced to the cecum as identified by landmarks including the appendiceal orifice and the ileocecal valve. The prep was good. The colonoscope was then slowly withdrawn, examining for any mucosal abnormalities. The cecum, ascending, transverse, descending and sigmoid colon were visualized adequately. No obvious inflammatory lesions were noted. No inflammatory changes were noted. No diverticuli were noted. Multiple polyps were encountered. 2 were noted in the transverse colon and these appeared sessile in nature. Both were removed with forcep polypectomy. 2 additional were noted in the descending colon. One was removed with hot snare polypectomy and the other with forcep polypectomy. Hemostasis was maintained. Retroflexion was performed in the rectum and mild internal hemorrhoids were visible. Excess air was removed, the colonoscope withdrawn and the procedure terminated. The patient was then transferred to the recovery unit in stable condition. Repeat colonoscopy should be performed in 3 years.
[2024-05-08 13:58] VITALS: BP 127/64; PULSE 59
== END | disposition home or self-care (01) ==
LOC: ORWHC2ENDO 11:53
PROVIDERS: ATTEND Surgery
DX: Z12.11 Encounter for screening for malignant neoplasm of colon (principal); D12.3 Benign neoplasm of transverse colon; D12.4 Benign neoplasm of descending colon; K64.8 Other hemorrhoids; K29.70 Gastritis, unspecified, without bleeding; K31.89 Other diseases of stomach and duodenum; K21.00 Gastro-esophageal reflux disease with esophagitis, without bleeding; I10 Essential (primary) hypertension; E07.9 Disorder of thyroid, unspecified; Z79.890 Hormone replacement therapy; Z79.899 Other long term (current) drug therapy; Z87.891 Personal history of nicotine dependence; Z86.0100 Personal history of colon polyps, unspecified
CPT/HCPCS: 88305; 45380; 45385; 43239; J2704

== ENCOUNTER → 2024-08-05 | Outpatient (CLI) | payer BC ==
--- NOTE | 2024-08-05 17:39 | CTL ---
EXAMINATION TYPE: CT Low Dose Lung DATE OF EXAM ORDERED: 08/05/2024 COMPARISON: CT Low Dose Lung 07/24/2023, 06/19/2022, 05/06/2021 CLINICAL INDICATION: Female, 59 years old with history of Z12.2 SCREENING Z87.891 FORMER SMOKER; [facility], Former smoker quit x 2yrs. Hx of 1PPD x38yrs., Lung cancer screening, History of Smoking/tobacco use . TECHNIQUE: Low dose computed tomography scan was performed through the chest at 1 mm thick sections a nd reconstructed images in multiple planes at 1 mm and [address] DLP: [address] CTDI: 3.45 mGy Automated exposure control for dose reduction was used. CT DIAGNOSTIC QUALITY: Satisfactory FINDINGS: Nodules: No clinically significant pulmonary nodules. LUNGS: COPD: Severity: None Fibrosis: Severity: None Lymph nodes: None Other findings: None RIGHT PLEURAL SPACE: Effusion: None Calcification: None Thickening: None Pneumothorax: None LEFT PLEURAL SPACE: Effusion: None Calcification: None Thickening: None Pneumothorax: None HEART: Heart Size: Normal Coronary Calcification: None Pericardial Effusion: None OTHER FINDINGS: Upper abdomen: The liver is diffusely hypoattenuating. Gallbladder is surgically absent. Bony thorax: Mild multilevel degenerative disc disease. Supraclavicular region: None Other: None IMPRESSION: 1. No clinically significant pulmonary nodules. 2. Hepatic steatosis. CT LUNG RAD AND CT CHEST RECOMMENDATION: Lung-Rad 1 Negative: Continue annual screening with LDCT in 12 months. S Modifier (other clinically significant findings): None [facility], , 08/05/2024 5:37 PM
== END | disposition home or self-care (01) ==
LOC: RADCTMAIN 17:13
PROVIDERS: ATTEND Internal Medicine
DX: Z12.2 Encounter for screening for malignant neoplasm of respiratory organs (principal); Z87.891 Personal history of nicotine dependence; K76.0 Fatty (change of) liver, not elsewhere classified
CPT/HCPCS: 71271

== ENCOUNTER → 2024-09-01 | Outpatient (CLI) | payer BC ==
--- NOTE | 2024-09-02 07:27 | MM ---
Reason for Exam: Screening (asymptomatic). Last mammogram was performed 1 year(s) and 8 month(s) ago. Patient History: Menarche at age 14. First Full-Term at age 35. Late child-bearing (after 30). Patient has history of breast feeding. Patient used Hormonal Contraceptives for 10 years. Maternal grandmother had breast cancer. Risk Values: Sonal 5 year model risk: 1.8%. NCI Lifetime model risk: 10.5%. Prior Study Comparison: 05/12/2020 Bilateral Screening Mammogram, [facility]. 11/22/2021 Bilateral MG 3D screening mammo w/cad, [facility]. 12/11/2022 Bilateral MG 3D screening mammo w/cad, [facility]. Tissue Density: The breasts are heterogeneously dense, which may obscure small masses. Findings: Analyzed By CAD. There is no suspicious group of microcalcifications or new suspicious mass in either breast. Overall Assessment: Benign, BI-RAD 2 Management: Screening Mammogram of both breasts in 1 year. . Patient should continue monthly self-breast exams. A clinical breast exam by your physician is recommended on an annual basis. This exam should not preclude additional follow-up of suspicious palpable abnormalities. Note on Sonal scores and lifetime risk: 1. A Sonal score greater than 3% is considered moderate risk. If this is the case, consider specialist referral to assess eligibility for a risk reducing agent. 2. If overall lifetime risk for the development of breast cancer is 20% or higher, the patient may qualify for future screening with alternating mammogram and breast MRI. [facility], , 09/02/2024 7:24 AM. Electronically signed and approved by: Jerson Prajapati M.D. Radiologis
== END | disposition home or self-care (01) ==
LOC: RADMAMWWP 16:31
PROVIDERS: ATTEND Internal Medicine
DX: Z12.31 Encounter for screening mammogram for malignant neoplasm of breast (principal); R92.333 Mammographic heterogeneous density, bilateral breasts; Z80.3 Family history of malignant neoplasm of breast; Z92.0 Personal history of contraception
CPT/HCPCS: 77063; 77067

== ENCOUNTER → 2024-11-21 | Outpatient (CLI) | payer BC ==
[2024-11-21 15:43] LABS: Basophils # (A) 0.05 X 10*3/uL (0.00-0.10); Basophils % (A) 0.4 %; Eosinophils # (A) 0.26 X 10*3/uL (0.04-0.35); Eosinophils % (A) 2.3 %; HCT 40.7 % (37.2-46.3); Lymphocytes # (A) 3.49 X 10*3/uL (0.90-5.00); Lymphocytes % (A) 30.9 %; MCH 29.6 pg (27.0-32.0); MCHC 31.9 g/dL (32.0-37.0); MCV 92.7 FL (80.0-97.0); Mean Platelet Volume 10.1 FL (9.5-12.2); Monocytes # (A) 1.05 X 10*3/uL (0.20-1.00); Monocytes % (A) 9.3 %; NRBC Per 100 WBC 0 X 10*3/uL (0.00-0.01); Neutrophils # (A) 6.39 X 10*3/uL (1.80-7.70); Neutrophils % (A) 56.6 %; Platelet Count 268 X 10*3/uL (140-440); RBC 4.39 X 10*6/uL (4.10-5.20); RDW 12.4 % (11.5-14.5)
[2024-11-21 16:21] LABS: ALT 57 U/L (8-44); AST 30 U/L (13-35); Albumin 4.2 g/dL (3.8-4.9); Albumin/Globulin Ratio 1.83 Ratio (1.60-3.17); Alkaline Phosphatase 101 U/L (41-126); Blood Urea Nitrogen 15.6 mg/dL (9.0-27.0); Calcium 9.3 mg/dL (8.7-10.3); Carbon Dioxide 25.5 mmol/L (21.6-31.8); Chloride 103 mmol/L (96-109); Chol/HDL Ratio 4.28 Ratio; Globulin 2.3 g/dL (1.6-3.3); Glucose 121 mg/dL (70-110); Magnesium 1.9 mg/dL (1.5-2.4); Potassium 4.5 mmol/L (3.5-5.5); Sodium 139 mmol/L (135-145); T4, Free (Free Thyroxine) 0.88 ng/dL (0.80-1.80); Total Bilirubin 0.8 mg/dL (0.3-1.2); Total Protein 6.5 g/dL (6.2-8.2)
== END | disposition home or self-care (01) ==
LOC: LABWHC1 09:22
PROVIDERS: ATTEND Internal Medicine
DX: I10 Essential (primary) hypertension (principal); E03.9 Hypothyroidism, unspecified; E55.9 Vitamin D deficiency, unspecified; R73.9 Hyperglycemia, unspecified
CPT/HCPCS: 36415; 80053; 80061; 82306; 83036; 83735; 84439; 84443; 85025